=== PATIENT | male | born 1960 | race Hispanic/Latino ===

== ENCOUNTER 2019-08-13 21:26 | Emergency (ER) | payer SELFPAY ==
--- NOTE | 2019-08-13 22:38 | RAD ---
Exam: XR Hip Lt 2-3 View HISTORY: Left hip pain after a fall. COMPARISON: None FINDINGS: Minimal left hip osteoarthritis is present. No acute fracture, dislocation, or other acute osseous abnormality is identified. IMPRESSION: No acute osseous abnormality is visualized. However, if there are strong clinical concern for fractur e of the left hip, MRI would be better study of choice to exclude radiographically occult fracture.
--- NOTE | 2019-08-13 22:58 | RAD ---
THERE VIEWS LUMBAR SPINE: History: Low back injury. Comparison: None. FINDINGS: There are five non-rib bearing lumbar type vertebral bodies. Scattered osteophytes are present. There is narrowing of the L5-S1 intervertebral disc space. The vertebral body heights are within normal li mits. No fracture or subluxation is seen involving the lumbar spine. IMPRESSION: Degenerative changes lumbar spine without evidence of a fracture or subluxation seen. POS: OFF
--- NOTE | 2019-08-13 22:59 | RAD ---
ONE VIEW PELVIS: History: Injury. FINDINGS: No fracture or dislocation is seen. No other osseous abnormality. Phleboliths overlie the right hemip teresa. IMPRESSION: No acute osseous abnormality is seen. If there is pain localized to either hip, dedicated views of th at hip recommended for further evaluation. POS: OFF
--- NOTE | 2019-08-14 06:47 | CT ---
NONCONTRAST CT LEFT HIP: Date: 08/13/2019 HISTORY: Left hip injury. FINDINGS: There is no evidence of a fracture or dislocation involving the left hip. Minimal degenerative change s are seen at the pubic symphysis. No joint effusion is seen involving the left hip. There is mild de la cruz bcutaneous soft tissue swelling seen within the lateral left gluteal subcutaneous soft tissues. No he matoma is appreciated. IMPRESSION: 1. Subcutaneous soft tissue swelling posterolateral left hip. 2. No acute osseous abnormality seen involving the left hip. POS: OFF
== END 2019-08-14 01:52 | disposition short-term general hospital (02) ==
LOC: MADERS 21:26
DX: S70.02XA Contusion of left hip, initial encounter (principal); F17.210 Nicotine dependence, cigarettes, uncomplicated; W19.XXXA Unspecified fall, initial encounter
CPT/HCPCS: 72100; 72170

== ENCOUNTER 2022-04-20 04:33 | Emergency (ER) | payer OTHER, SELFPAY ==
[2022-04-20] MEDS ORDERED: Ondansetron PF 4 MG/2 ML Vial ONE (05:25)
[2022-04-20] MEDS ORDERED: Morphine 4 MG/ML VIAL ONE (05:26)
[2022-04-20 05:42] LABS: #Basophils 0.1 thou/uL (0.0-0.2); #Eosinphils 0.4 thou/uL (0.0-0.7); #Lymphocytes 2.6 thou/uL (1.20-3.40); #Monocytes 0.9 thou/uL (0.11-0.59); #Neutrophils 10.1 thou/uL (1.40-6.50); %Basophils 0.5 % (0.0-1.0); %Eosinophils 2.5 % (0.0-10.0); %Lymphocytes 18.4 % (21.0-51.0); %Monocytes 6.3 % (0.0-10.0); %Neutrophils 72.3 % (42.0-75.0); Hemoglobin 9.6 g/dL (14.0-18.0); Mean Corpuscular HGB CONC 31.8 g/dL (32.0-36.0); Mean Platelet Volume 8.6 fL (7.4-10.4); Platelet Count 312 thou/uL (130-400); RBC Distribution Width 16.2 % (11.5-14.5); Red Blood Cell (RBC) Count 3.42 mill/uL (4.70-6.10); White Blood Cell (WBC) Count 13.9 thou/uL (4.8-10.8)
[2022-04-20 05:52] LABS: INR-International Normal Ratio 1.1; Prothrombin Time 14.1 sec (12.0-14.7)
[2022-04-20 05:53] LABS: PTT 48.9 sec (22.9-36.1)
[2022-04-20 06:04] LABS: ALT (SGPT) 18 U/L (8-55); AST (SGOT) 19 U/L (5-34); Albumin 3.4 g/dL (3.5-5.0); Alkaline Phosphatase 117 U/L (40-110); Anion Gap 17 mmol/L (10-20); BUN (Urea Nitrogen) 22 mg/dL (8.4-25.7); Bilirubin, Total 0.2 mg/dL (0.2-1.2); CK (CPK) 76 U/L (30-200); Calc. Creatinine Clearance 0 mL/min (70-130); Calcium 9.1 mg/dL (7.8-10.44); Carbon Dioxide 23 mmol/L (22-29); Chloride 101 mmol/L (98-107); Estimated GFR 108; Globulin 4.4 g/dL (2.4-3.5); Glucose 161 mg/dL (70-105); Lipase 14 U/L (8-78); Potassium 4.1 mmol/L (3.5-5.1); Protein, Total 7.8 g/dL (6.0-8.3); Sodium 137 mmol/L (136-145)
[2022-04-20 06:50] LABS: Bilirubin Negative (Negative); Blood, Urine Negative (Negative); Clarity Clear (Clear); Glucose, Urine (Dipstick) Negative (Negative); Ketone, Urine Negative (Negative); Leukocyte Negative (Negative); Nitrite Negative (Negative); Protein, Urine (Dipstick) Negative (Neg-Trace); Specific Gravity, Urine 1.015 (1.005-1.030); Urobilinogen 0.2 mg/dL (Less than 2); pH, Urine 7.5 (5.0-9.0)
[2022-04-20] MEDS ORDERED: Sodium Chloride 0.9% 100 ML BAG ONE (07:17)
[2022-04-20] MEDS ORDERED: Iopamidol 370 76% 125 ML VIAL FS ONE (10:46)
== END 2022-04-20 08:26 | disposition home or self-care (01) ==
LOC: MADERS 04:33
DX: J18.9 Pneumonia, unspecified organism (principal)
CPT/HCPCS: 71275; 74177; 80053; 81003; 82550; 83605; 83690; 84484; 85025; 85610; 85730; 87040; 87081; 87430; 87804; 93005; 96365; 96366; 96375; J1956; J2270; J2405; Q9967

== ENCOUNTER 2023-03-22 20:15 | Emergency (ER) | payer SELFPAY ==
[2023-03-22] MEDS ORDERED: Lidocaine Viscous Sol 2% 15 ml UD Cup ONE (21:11)
[2023-03-22 21:23] LABS: INR-International Normal Ratio 0.9; Prothrombin Time 12.3 sec (12.0-14.7)
[2023-03-22 21:24] LABS: Band 1 % (5-11); Eosinophils 2 % (0-10); Hematocrit 43.3 % (42.0-52.0); Hemoglobin 13.6 g/dL (14.0-18.0); Lymphocytes 43 % (21-51); MDiff Complete? YES; Mean Corpuscular HGB CONC 31.4 g/dL (32.0-36.0); Mean Corpuscular Hemoglobin 30.1 pg (27.0-31.0); Mean Corpuscular Volume 96.1 fl (78.0-98.0); Mean Platelet Volume 13.3 fL (7.4-10.4); Monocytes 3 % (0-10); Neutrophil 51 % (42-75); PTT 38.8 sec (22.9-36.1); Platelet Adequacy Comment Appears Adequate; Platelet Count 218 10x3/uL (130-400); White Blood Cell (WBC) Count 7.7 10x3/uL (4.8-10.8)
[2023-03-22 21:33] LABS: ALT (SGPT) 16 U/L (8-55); AST (SGOT) 21 U/L (5-34); Albumin 4.6 g/dL (3.5-5.0); Alkaline Phosphatase 83 U/L (40-110); Anion Gap 14 mmol/L (10-20); BUN (Urea Nitrogen) 20 mg/dL (8.4-25.7); Bilirubin, Total 0.2 mg/dL (0.2-1.2); Calc. Creatinine Clearance 0 mL/min (70-130); Calcium 10.3 mg/dL (7.8-10.44); Carbon Dioxide 26 mmol/L (22-29); Chloride 102 mmol/L (98-107); Estimated GFR 103; Globulin 4.4 g/dL (2.4-3.5); Glucose 90 mg/dL (70-105); Potassium 4.4 mmol/L (3.5-5.1); Sodium 138 mmol/L (136-145)
== END 2023-03-22 22:43 | disposition home or self-care (01) ==
LOC: MADERS 20:15
DX: K13.79 Other lesions of oral mucosa (principal)
CPT/HCPCS: 70491; 80053; 85025; 85610; 85730